=== PATIENT | male | born 1955 | race Caucasian/White ===

== ENCOUNTER 2017-06-14 10:50 | Outpatient (CLI) | payer OTHER ==
[~2017-06-14 10:50] MED LIST: VOLTAREN75 MG PO
== END 2017-06-14 15:25 ==
LOC: ACC 10:50
DX: I63.9 Cerebral infarction, unspecified (principal); Z79.01 Long term (current) use of anticoagulants; Z51.81 Encounter for therapeutic drug level monitoring
CPT/HCPCS: G0463

== ENCOUNTER 2017-08-11 10:32 | Outpatient (CLI) | payer OTHER | END 2017-08-11 13:06 | LOC: ACC 10:32 | DX: I63.9 Cerebral infarction, unspecified (principal); Z79.01 Long term (current) use of anticoagulants; Z51.81 Encounter for therapeutic drug level monitoring | CPT/HCPCS: G0463 ==